=== PATIENT | male | born 1960 | race Caucasian/White ===

== ENCOUNTER 2016-11-11 19:29 | Inpatient (IN) | payer OTHER ==
--- NOTE | ~2016-11-11 | PRECARD ---
H&P [facility] [address] [place]. [address] NAME: IVAN HAMPTON : 64 STATUS : ADM IN [facility]#: [id number] AGE: 56 ADM/REG DATE : 11/11/16 MR#: [id number] REPORT SERV DATE: 11/12/16 DICTATED BY: AMANDA TALBERT DATE: 11/12/16 REPORT STATUS : Draft TRANSCRIBED BY: YANN DATE: 11/12/16 DATE OF ADMISSION: 11/11/2016 Mr. Ivan Hampton is a 56-year-old gentleman, admitted with a diagnosis of congestive heart failure exacerbation and pneumonia, Cardiology is consulted for a troponin of 0.06. Memo reports a history of coronary artery disease. He states he had multiple stents placed, most recently about five years ago by Dr. Underwood at [facility]. He also reports a prior history of congestive heart failure. He reports to the emergency room now with a perhaps one-week history of dyspnea on exertion, easy fatigue, decreased exercise tolerance. He has occasional, rare episodes of orthopnea and PND. He has chest discomfort. The discomfort occurs somewhat randomly, sporadically. He emphatically denies any exertional chest discomfort. The discomfort lasted a few seconds. He is uncertain about the discomfort he had previously. He does not know if this discomfort is similar to the discomfort he has had in the past. He describes some subjective fever. He describes having a green mucus production. He has had no chills. He denies stroke or stroke-like symptoms. He has no palpitations. PAST MEDICAL HISTORY: 1. Prior tobacco use. 2. Hypertension. SOCIAL HISTORY: Prior tobacco use, but quit smoking about 30 years ago. Denies alcohol. Denies illicit drug use. He is homeless. MEDICATIONS: 1. Albuterol. 2. Plavix. 3. Lasix. 4. Lisinopril. 5. Coreg. REVIEW OF SYSTEMS: A complete review of systems obtained, pertinent negative and unremarkable except as noted above and below all systems addressed. PHYSICAL EXAMINATION: Bp: About 120/60. Heart Rate: About 90. GENERAL: Comfortable, in no acute distress. HEENT: No xanthelasma; lips without cyanosis LUNGS: Clear to auscultation, no wheezes, rales or rhonchi; good breath sounds. H&P [facility] [address] [place]. [address] NAME: IVAN HAMPTON : 64 STATUS : ADM IN [facility]#: [id number] AGE: 56 ADM/REG DATE : 11/11/16 MR#: [id number] REPORT SERV DATE: 11/12/16 DICTATED BY: AMANDA TALBERT DATE: 11/12/16 REPORT STATUS : Draft TRANSCRIBED BY: YANN DATE: 11/12/16 COR: No JVD or hepatojugular reflux, no murmurs, rubs or gallops, impulse mid clavicular line without carotid or abdominal bruits; normal S1 and S2. ABDOMEN: Bowel sounds positive, normal activity, without tenderness, masses or hepatosplenomegaly. EXTREMITIES: No edema, cyanosis. SKIN: Normal turgor. Ms: Normal muscle strength, without kyphosis/scoliosis. NEURO/PSYCH: Alert and oriented times 4, no apparent anxiety or depression. LABORATORY DATA: White count 13.3, hematocrit 44.7, and platelet count is 294,000. BUN is 23, creatinine 1.0. Troponin 0.06. BNP 743. EKG is sinus rhythm with inferior infarct, probable anterior infarct. ASSESSMENT: Mr. Hampton is a 56-year-old gentleman with known coronary artery disease admitted with heart failure symptoms. His BNP is elevated at 743. Troponin is 0.06. His CK-MB is 3.6, CPK total 54. His EKG shows prior inferior anterior infarct. We will plan to continue diuresis, assess an echocardiogram to look for left ventricular systolic function, we will add carvedilol empirically for the mortality benefit as well as aspirin. Further recommendations are forthcoming depending upon his clinical course and the result of echocardiogram. RICK/YANN anda Talbert M.D. / [id number] CC: Parag Orozco NP
--- NOTE | ~2016-11-11 | HP ---
History And Physical [place] [id number] [facility] [place]. [address] NAME: JENIFFER RONDON : 64 STATUS : ADM IN [facility]#: [id number] AGE: 56 ADM/REG DATE : 11/11/16 MR#: [id number] REPORT SERV DATE: 11/12/16 DICTATED BY: DELFINA GIRALDO DATE: 11/11/16 REPORT STATUS : Draft TRANSCRIBED BY: MODL DATE: 11/11/16 DATE OF ADMISSION: 11/11/2016 CHIEF COMPLAINT: Increasing shortness of breath, intermittent chest pain, cough, and greenish productive sputum for one week. This is a pleasant 56 years old gentleman. Currently, he does not have a primary care provider nor he has a sports athletic trainer. He says that he has a history of coronary artery disease, status post CO, status post PTCA and stent. According to the patient, four or five years ago, at [place], he got the stent. At that time, he was seeing Dr. Underwood, but he has seen him only during that hospitalization. He has a history of CHF with unknown ejection fraction, hypertension, history of pneumonia, prior tobacco abuse quit about four to five years ago when he had the heart attack, but he was a smoker for 30 years, prior history of pneumonia, currently homeless, living in a tent behind [facility] in [place], presenting today to [facility] with increasing shortness of breath and chest pain, intermittent. It is important to note that lately, the patient has been experiencing increasing shortness of breath and intermittent chest pain especially with exertion and for one week also, some productive cough with greenish sputum production. No fever according to the patient, but mostly, he came complaining of this increasing shortness of breath and chest pain he described as a sharp pain radiating to the left arm that was intermittent, relieved mostly by rest and pain medication. Due to the severity of the symptoms today, he has been brought to emergency room, where after initial evaluation, Hospitalist Service has been asked for admission, further evaluation, and treatment. It is important to note that the patient says that he is taking medications that has been left prescribed by his primary care provider, who used to be Dr. Wan Phillips. No recent hospitalization recently. No recent echo or stress test. PAST MEDICAL HISTORY: Significant for coronary artery disease, status post prior CO, status post prior PTCA and stent; history of hypertension; CHF; prior history of pneumonia; and prior smoker. PAST SURGICAL HISTORY: PTCA and stent about four to five years ago. SOCIAL HISTORY: He is not a smoker, quit about four to five years ago. No alcohol. No IV drugs. ALLERGIES: THE PATIENT DOES NOT HAVE ANY DRUG ALLERGIES. FAMILY HISTORY: Significant for coronary artery disease. MEDICATIONS: Listed as his home medications include albuterol, Plavix, Lasix, Prinivil, and Coreg. REVIEW OF SYSTEMS: A 14-point review of systems has been obtained and pertinent positives have been listed into the history of present illness. Otherwise, negative except those underlying above. PHYSICAL EXAMINATION: History And Physical [address] [address] NAME: JENIFFER RONDON : 64 STATUS : ADM IN [facility]#: [id number] AGE: 56 ADM/REG DATE : 11/11/16 MR#: [id number] REPORT SERV DATE: 11/12/16 DICTATED BY: DELFINA GIRALDO DATE: 11/11/16 REPORT STATUS : Draft TRANSCRIBED BY: YANN DATE: 11/11/16 VITAL SIGNS: Currently, the patient is afebrile, blood pressure 135/72, heart rate 99, respiratory rate 16, and saturating 92% on room air. GENERAL: He is a very pleasant, well-developed, well-nourished gentleman, in no acute distress currently. He is alert and oriented x3. Nonfocal. He follows all his commands appropriately. HEENT: Show pupils equal, round, and reactive to light. Extraocular movements intact. No JVD. No lymphadenopathy. No thyromegaly appreciated. CHEST: Eval shows bilateral air entry. Scant few bilateral bibasilarly crackles. No wheezes, no rhonchi appreciated. CARDIOVASCULAR: Regular rate and rhythm. S1, S2 positive. No S3, no S4. No murmurs, rubs, or gallops appreciated. ABDOMEN: Soft with positive bowel sounds. Nontender. No guarding. No rebound. EXTREMITIES: No clubbing, cyanosis, or edema. NEUROLOGIC: He is alert and oriented x3. Nonfocal. He follows all his commands appropriately. LABORATORY DATA: Labs from today include sodium 143, potassium 3.7, chloride 103, CO2 of 24, BUN 18, creatinine 0.97, glucose is 114. Liver function test shows an ALT of 29, AST 23, total bilirubin 0.7, lipase 290. Troponin I 0.06 and BNP 743.3. Lactate 0.8, white count 14.9, hemoglobin 14.8, hematocrit 46.7, platelets 289. INR 1.2. Blood cultures currently are pending. Chest x-ray shows bilateral pulmonary infiltrates and some congestion. EKG shows normal sinus rhythm with anterolateral ST-T changes. No ST elevation. ASSESSMENT: This is a very pleasant 56 years old gentleman with: 1. Congestive heart failure exacerbation. 2. Unstable angina. 3. Possible pneumonia. 4. History of coronary artery disease, status post prior myocardial infarction, status post PTCA and stent. 5. Hypertension. 6. Prior tobacco abuse. PLAN: 1. The patient is going to be admitted to monitored bed. Place him on oxygen. Place him on nitro paste as tolerated. Coreg. Continue Plavix. Place him on heparin drip as per cardiovascular protocol. Rule him out for myocardial infarction by serial cardiac enzymes, serial EKG. Check a 2D echo. Provide IV diuretics and consult Cardiology for further recommendation. 2. Chest pain, intermittent, with progressive shortness of breath concerning for unstable angina. We are going to place the patient on nitro paste. We are going to place him on heparin drip. Continue Plavix. Rule him out for CO by serial cardiac enzymes, serial EKGs. Check a 2D echo. 3. Possible pneumonia. We are going to place him on antibiotics. Check sputum Gram stain and culture. Nebulizer treatment. Check a procalcitonin level as well. Symptomatic treatment. Follow up chest x-ray in the morning. 4. Hypertension. Continue his home medication. Provide p.r.n. hydralazine as needed. We are going to provide reasonable pain and nausea control as well as GI and DVT History And Physical [address] [address] NAME: JENIFFER RONDON : 64 STATUS : ADM IN [facility]#: [id number] AGE: 56 ADM/REG DATE : 11/11/16 MR#: [id number] REPORT SERV DATE: 11/12/16 DICTATED BY: DELFINA GIRALDO DATE: 11/11/16 REPORT STATUS : Draft TRANSCRIBED BY: MODL DATE: 11/11/16 prophylaxis. That has been discussed extensively with the patient. All the questions have been answered in full. Further workup and recommendation pending above. It is worthwhile to note that the patient is going to be followed up by Dr. Aileen Jasso. CF/MODL Delfina Giraldo M.D. / [id number] CC: Parag Orozco NP
--- NOTE | ~2016-11-11 | DS ---
Discharge Summary [facility] [address] [facility] [place]. [address] NAME: JENIFFER RONDON : 64 STATUS : DIS IN PAT#: [id number] AGE: 56 ADM/REG DATE : 11/11/16 MR#: [id number] REPORT SERV DATE: 11/15/16 DICTATED BY: BIPIN FRAZIER DATE: 11/15/16 REPORT STATUS : Draft TRANSCRIBED BY: MODLuci DATE: 11/15/16 ADMISSION DATE: 11/11/2016 DISCHARGE DATE: 11/15/2016 DIAGNOSES ON ADMISSION: 1. Congestive heart failure exacerbation. 2. Unstable angina. 3. Possible pneumonia. 4. History of coronary artery disease status post prior myocardial infarction, status post PTCA and stent placement. 5. Hypertension. 6. History of prior tobacco abuse. DIAGNOSES ON DISCHARGE: 1. Congestive heart failure exacerbation, present on admission, resolved. Chronic systolic dysfunction with ejection fraction 20% per echocardiogram. 2. Coronary artery disease, status post coronary arteriography per e learning coordinator, Dr. Madera. 3. Occluded mid LAD, occluded mid circumflex, moderate RCA stenosis. Recommendation; medical management and tobacco cessation. 4. Multifocal bronchopneumonia with two nodular opacities, clinically improved. Follow up with color maker as an outpatient. 5. History of tobacco abuse, stop using tobacco. 6. Homelessness. 7. Some degree of medical noncompliance. Lost his primary care physician. Dismissed by Dr. Phillips. No currently primary care physician. 8. Chronic back pain with drug dependency. CONSULTANTS ON THE CASE: Cardiologists, Dr. Talbert and Dr. Sher as well as Dr. Madera, and color maker, Dr. Gertrudis Mccloud. IMAGING STUDIES: 1. Echocardiogram done on 11/12/2016 revealed severely decreased left ventricular systolic function and ejection fraction 20%. Mild left ventricular diastolic dysfunction. Normal right ventricular size and systolic function. Mild left atrial enlargement. Mild aortic mitral and tricuspid regurgitation. 2. Coronary arteriography, which was done on 11/13/2016 showed multivessel coronary artery disease, and medical management was recommended per e learning coordinator, Dr. Madera. 3. Chest x-ray done on 11/12/2016 showed increasing vascular congestion with development of interstitial edema. 4. CT of the chest without contrast done on showed asymmetric left greater than right multifocal bronchopneumonia and most pronounced in the anterior and lateral basilar aspect of the left lower lobe. Two separate areas of subpleural nodular consolidations involving the right apex, largest measuring 2 cm in size. This too is most likely infectious or inflammatory in nature. Three-vessel coronary artery disease, atherosclerosis and stenting. Upper lobe predominant COPD. Discharge Summary [place] [address] [place]. [address] NAME: JENIFFER RONDON : 64 STATUS : DIS IN PAT#: [id number] AGE: 56 ADM/REG DATE : 11/11/16 MR#: [id number] REPORT SERV DATE: 11/15/16 DICTATED BY: BIPIN FRAZIER DATE: 11/15/16 REPORT STATUS : Draft TRANSCRIBED BY: YANN DATE: 11/15/16 HISTORY OF PRESENT ILLNESS: Briefly, this is a 56-year-old male, who was admitted by my colleague, Dr. Delfina Giraldo, for intermittent chest pain, cough, and greenish sputum production. The patient reported that he had a stent several years ago and currently he also had a prior history of pneumonia. He still smokes and currently he is homeless. He lives in a tent behind [facility]. This is per history of present illness dictated by Dr. Delfina Giraldo on 11/11/2016. It is also important to note per Dr. Giraldo's dictation that the patient was still taking medications that has been left prescribed by his primary care physician, Dr. Wan Phillips, although the patient later reported that he was dismissed by Dr. Phillips. For the full H and P, see history of present illness dictated by Dr. Kathie Giraldo on 11/11/2016. HOSPITAL COURSE: Briefly, the patient was admitted to the hospital and was evaluated by Cardiology. He was found to have severe congestive heart failure with a global systolic dysfunction as well as he had coronary arteriogram. See the results above. Factory Focus Technician recommended medical treatment with certain medications which will include aspirin, Plavix, carvedilol, lisinopril, isosorbide, spironolactone, and they also recommended the patient to follow up with e learning coordinator, Dr. Talbert. Regarding his multifocal bronchopneumonia, the patient was seen by color maker, Dr. Gertrudis Mccloud. She recommended the patient to complete a total seven days of antibiotics, so he was switched to Levaquin to complete his seven day of antibiotic course. He was doing well. He did not have any more sputum, and he was afebrile with normal white count. So, Dr. Mccloud recommended the patient to be discharged today and even yesterday he was ready for discharge. For his COPD, she recommended Anoro Ellipta and wrote prescription as well as albuterol. Regarding tobacco abuse, the patient recommended to stop smoking. Regarding pain initially in the beginning of admission, the patient was given pain medications for the chest pain, but currently when his chest pain resolved, he does not require any more pain medications. The patient requested outpatient pain medications for his chronic back pain. The patient was explained that pain medications are dangerous for health specifically for him who just had pneumonia, there is a possibility of aspiration and pain medications can make him unconscious especially narcotic pain medications. So it was explained to the patient that he needs to use Tylenol for his back pain, and he needs to follow up with the primary care physician for further evaluation. He said that Dr. Wan Phillips dismissed him, although he still has medications prescribed by Dr. Phillips, and the patient did not specify the reason why he was dismissed by Dr. Phillips. The patient during hospitalization was constantly asking for narcotic pain medications. So once again, it was explained to the patient that narcotic pain medications can cause a lot of harm to health. In the same time, he was able to ambulate without any problems. So, the patient was recommended to find a primary care physician, and if he really needs pain medications, he needs to be referred to pain management. This was explained to the patient, but the impression here was that the patient is able to function without pain medications. Discharge Summary [place] [id number] [facility] [place]. [address] NAME: JENIFFER RONDON : 64 STATUS : DIS IN [facility]#: [id number] AGE: 56 ADM/REG DATE : 11/11/16 MR#: [id number] REPORT SERV DATE: 11/15/16 DICTATED BY: BIPIN FRAZIER DATE: 11/15/16 REPORT STATUS : Draft TRANSCRIBED BY: YANN DATE: 11/15/16 Homelessness. The patient lives in a tent behind of the [facility]. recruitment advertising manager spoke with the patient and he said that he is going to stay with a friend or in the hospital. This was discussed with the patient with the director of casework services, so director of casework services provided the patient a voucher for transportation as well as director of casework services recommended the patient to be discharged. We also scheduled a followup appointment with e learning coordinator, Dr. Talbert, for 12/14/[address] Gertrudis Mccloud is going to notify the patient regarding followup appointments with her. DISCHARGE MEDICATIONS: The patient was given prescription for aspirin 81 mg daily, Lipitor 40 mg daily, carvedilol 25 mg twice a day prescribed by e learning coordinator, Plavix 75 mg p.o. daily recommended by e learning coordinator, isosorbide mononitrate 60 mg daily, lisinopril 10 mg daily, spironolactone 25 mg daily, Lasix was recommended to decrease to 20 mg daily, Anoro Ellipta prescription once daily given by Dr. Gertrudis Mccloud, as well as albuterol inhaler two puffs inhaled q.24 hours, and prescription for Levaquin 750 mg daily for four days given to the patient to complete a total course of seven days of Levaquin. The patient was discharged in stable condition. I spent 45 minutes on discharge. MG/MODL Bipin Frazier M.D. / [id number] CC: Parag Orozco, Parag Ko M.D.
--- NOTE | ~2016-11-11 | CN ---
Consultation Report [facility] [address] [place]. [address] NAME: JENIFFER HAMPTON : 64 STATUS : ADM IN [facility]#: [id number] AGE: 56 ADM/REG DATE : 11/11/16 MR#: [id number] REPORT SERV DATE: 11/14/16 DICTATED BY: GERTRUDIS CRAWFORD DATE: 11/14/16 REPORT STATUS : Draft TRANSCRIBED BY: MODL DATE: 11/14/16 PULMONARY CONSULTATION DATE OF CONSULTATION: 11/14/2016 REASON FOR CONSULTATION: Abnormal CT scan of the chest and possible COPD. HISTORY OF PRESENT ILLNESS: Mr. Hampton is a 56-year-old white male, former smoker, with a history of congestive heart failure and coronary artery disease. He was admitted complaining of increasing shortness of breath as well as chest pain and cough productive of green sputum for the past several days. Pulmonary was consulted secondary to an abnormal chest CT scan that was done as part of his admission workup. He states he feels significantly better after cardiac catheterization yesterday and medication adjustment for his underlying congestive heart failure and coronary artery disease. Additionally, he has been on azithromycin and Rocephin as well as supplemental oxygen since admission. As an outpatient, he has had ongoing dyspnea on exertion, cough productive of clear sputum and occasional wheezing for more than one year. He does not have an outpatient umbrella tipper, but has a prescription for rescue albuterol. He states he uses his albuterol rescue inhaler two times daily with improvement in the symptoms as described. He does have a history of childhood asthma, but states he "outgrew it a long time ago." He denies previous spirometry or pulmonary function testing. He denies any history of nasal symptoms, GERD symptoms, or symptoms of obstructive sleep apnea. PAST MEDICAL HISTORY: 1. Childhood asthma. 2. Former smoker. 3. Coronary artery disease with previous WI and stent placement. 4. Hypertension. 5. Congestive heart failure. 6. Hyperlipidemia. FAMILY HISTORY: Son had childhood asthma, but is currently asymptomatic and off medications. He denies other family history of pulmonary diseases. SOCIAL HISTORY: Mr. Andres smoked two packs of cigarettes per day for 30 years and quit approximately eight years ago. He has a remote history of smoking "a little marijuana." He denies other past/present drug use, ethanol intake, or chewing tobacco. He currently is unemployed and homeless. He is and has one son. MEDICATIONS: Outpatient and inpatient medications were reviewed and are as documented in the record. As an outpatient, he had an albuterol rescue inhaler, but otherwise, had no Consultation Report [facility] [address] [place]. [address] NAME: JENIFFER HAMPTON : 64 STATUS : ADM IN [facility]#: [id number] AGE: 56 ADM/REG DATE : 11/11/16 MR#: [id number] REPORT SERV DATE: 11/14/16 DICTATED BY: GERTRUDIS CRAWFORD DATE: 11/14/16 REPORT STATUS : Draft TRANSCRIBED BY: YANN DATE: 11/14/16 pulmonary medications currently or in the past. ALLERGIES: HE DENIES MEDICATION ALLERGIES. REVIEW OF SYSTEMS: A 14-point system review was conducted and is remarkable for the symptoms as described in the history of present illness. PHYSICAL EXAMINATION: VITAL SIGNS: Temperature 97.2 degrees, heart rate 72, blood pressure 105/55, respiratory rate 18, and oxygen saturation 96% on supplemental oxygen at a flow rate of 2 liters/minute. GENERAL: Pleasant obese white male. Alert, oriented, in no apparent distress. HEENT: Normocephalic. Atraumatic. There is no scleral icterus. The conjunctivae are clear. The oropharynx is clear. NECK: Supple. No lymphadenopathy was noted. LUNGS: There are diminished breath sounds throughout. There are no crackles, wheezes, or rhonchi. HEART: Regular rate and rhythm. No ectopy was noted. ABDOMEN: Soft. Nontender. Mildly distended with gas. There are normal bowel sounds in all four quadrants. BILATERAL EXTREMITIES: There is trace pedal edema. There is no cyanosis or clubbing. NEUROLOGICAL: A limited exam was found to be nonfocal. SKIN: No rashes were noted. LABORATORY RESULTS: Labs were reviewed and are as documented in the record. Notable labs include a white blood cell count of 9.4. The BNP is 638.7. The procalcitonin on admission was less than 0.05. IMAGING: The chest x-ray done this admission revealed cardiomegaly and pulmonary edema. The CT scan of the chest without contrast done this admission revealed diffuse tree-in-bud opacities and throughout the lungs. There are right upper lobe and left lower lobe infiltrates with air bronchograms. There is upper lobe predominant emphysema. There is a right upper lobe nodular consolidation and cardiomegaly. ASSESSMENT AND PLAN: Mr. Hampton is a 56-year-old white male, former smoker, with an abnormal CT scan of the chest as described above. The findings are consistent with pneumonia and inflammation. He also has emphysema, chronic bronchitis, and possible chronic obstructive pulmonary disease. As described, he has responded to rescue albuterol. 1. Recommend antibiotics for seven days total - he has been on azithromycin. Would complete five days of azithromycin and treat with Rocephin while an inpatient. He can be changed to Levaquin or Augmentin upon discharge for seven days total of antibiotics. 2. He will need a repeat CT scan of the chest to ensure clearing of the abnormal findings described above. This will be arranged for him outpatient in the next six to eight weeks. He will ultimately need at minimum annual lung cancer screening CT scans of the Consultation Report [address] [id number] NAME: JENIFFER HAMPTON : 64 STATUS : ADM IN [facility]#: [id number] AGE: 56 ADM/REG DATE : 11/11/16 MR#: [id number] REPORT SERV DATE: 11/14/16 DICTATED BY: GERTRUDIS CRAWFORD DATE: 11/14/16 REPORT STATUS : Draft TRANSCRIBED BY: YANN DATE: 11/14/16 chest once his current findings have resolved. 3. His symptoms and physical findings are consistent with chronic bronchitis and emphysema plus possible chronic obstructive pulmonary disease. He will be scheduled for outpatient spirometry to confirm. 4. Start Anoro Ellipta while here in the hospital. He is to continue this medication upon discharge. The clinical case manager has been asked to provide him with so that he may obtain the medication without problems. 5. Continue rescue albuterol. 6. He will be scheduled for followup in the Pulmonary Clinic in three to four weeks with a spirogram. Thank you very much for this consultation. Please call again with any further questions. MARCUS/YANN Gertrudis Crawford M.D. / [id number] CC: Parag Orozco NP
[~2016-11-11 19:29] MED LIST: COREG25 PO; L20 PO; PLAVIX PO; PRIN10 PO; PROAIR HFA INH
[2016-11-11 19:34] LABS: BASOPHILS 0.2 %; BASOPHILS ABSOLUTE 0.03 10/3/uL (0.0-0.16); EOSINOPHILS 0.5 %; EOSINOPHILS ABSOLUTE 0.08 10/3/uL (0.0-0.53); HEMATOCRIT 46.7 % (40.0-51.0); HEMOGLOBIN 14.8 g/dL (13.6-17.8); IMMATURE GRANULOCYTES 1.5 %; IMMATURE GRANULOCYTES ABSOLUTE 0.23 10/3/uL (0.0-0.11); LYMPHOCYTES 9.5 %; LYMPHOCYTES ABSOLUTE 1.42 10/3/uL (0.67-4.30); MEAN CORPUS HGB CONC 31.7 g/dL (32.0-36.0); MEAN PLATELET VOLUME 8.9 fL (9.2-13.0); MONOCYTES 3.8 %; MONOCYTES ABSOLUTE 0.57 10/3/uL (0.21-1.20); NEUTROPHILS 84.5 %; NEUTROPHILS ABSOLUTE 12.56 10/3/uL (2.02-8.40); RED CELL COUNT 5.41 10/6/uL (4.7-6.1)
[2016-11-11 19:38] LABS: ER CBC TAT 0 Hrs 14 Mins; MANUAL DIFF NO %; MEAN CORPUSCULAR HEMOGLOB 27.4 pg (26.0-34.0); MEAN CORPUSCULAR VOLUME 86.3 fL (80-100); PLATELET COUNT 289 10/3/uL (150-400); RBC DISTRIBUTION WIDTH 16.6 % (12.0-16.0); WHITE BLOOD CELLS 14.9 10/3/uL (4.5-10.5)
[2016-11-11 19:41] LABS: INTERNATIONAL NORMAL RATI 1.2 UNITS (-); PARTIAL THROMBO TIME 25.5 SEC (22.5-37.2); PROTIME (NOT ORD) 14.6 SEC (12.0-14.5)
[2016-11-11 20:03] LABS: CHLORIDE, SERUM 103 MMOL/L (96-112); CREATININE 0.97 MG/DL (0.70-1.30); GFR AFRICAN AMERICAN 102 ML/MIN (>=60); GFR NON AFRICAN AMERICAN 88 ML/MIN (>=60); GLUCOSE, SERUM 114 MG/DL (60-99); POTASSIUM, SERUM 3.7 MMOL/L (3.5-5.3); SODIUM, SERUM 143 MMOL/L (135-148)
[2016-11-11 20:06] LABS: BUN (BLOOD UREA NITROGEN) 18 MG/DL (6-23); CO2 (CARBON DIOXIDE) 34 MMOL/L (24-34)
[2016-11-11 20:08] LABS: CHEST PAIN PROFILE TAT 0 Hrs 44 Mins; TROPONIN I 0.06 NG/ML (<0.05)
[2016-11-11 21:08] LABS: DIRECT BILIRUBIN 0.1 MG/DL (0.0-0.4); INDIRECT BILIRUBIN(NOT ORDER) 0.6 MG/DL (0.1-0.9); TOTAL BILIRUBIN 0.7 MG/DL (0-1.2); TOTAL PROTEIN 6.8 G/DL (6.0-8.5)
[2016-11-11 21:10] LABS: ALBUMIN 2.6 G/DL (3.5-5.0)
[2016-11-11 21:23] LABS: LACTATE 0.8 MMOL/L (0.3-2.4)
[2016-11-12 05:10] LABS: BASOPHILS 0.3 %; BASOPHILS ABSOLUTE 0.04 10/3/uL (0.0-0.16); EOSINOPHILS 1.7 %; EOSINOPHILS ABSOLUTE 0.23 10/3/uL (0.0-0.53); HEMATOCRIT 44.7 % (40.0-51.0); IMMATURE GRANULOCYTES 1.5 %; LYMPHOCYTES 17.8 %; LYMPHOCYTES ABSOLUTE 2.37 10/3/uL (0.67-4.30); MEAN CORPUS HGB CONC 31.3 g/dL (32.0-36.0); MEAN CORPUSCULAR HEMOGLOB 27.5 pg (26.0-34.0); MEAN CORPUSCULAR VOLUME 87.6 fL (80-100); MEAN PLATELET VOLUME 9.5 fL (9.2-13.0); MONOCYTES 5.1 %; MONOCYTES ABSOLUTE 0.68 10/3/uL (0.21-1.20); NEUTROPHILS 73.6 %; NEUTROPHILS ABSOLUTE 9.79 10/3/uL (2.02-8.40); PLATELET COUNT 294 10/3/uL (150-400); RBC DISTRIBUTION WIDTH 16.8 % (12.0-16.0); WHITE BLOOD CELLS 13.3 10/3/uL (4.5-10.5)
[2016-11-12 05:11] LABS: MANUAL DIFF NO %
[2016-11-12 05:17] LABS: INTERNATIONAL NORMAL RATI 1.1 UNITS (-)
[2016-11-12 05:38] LABS: ALBUMIN 2.5 G/DL (3.5-5.0); ALKALINE PHOSPHATASE 104 U/L (45-117); CALCIUM, SERUM 8.7 MG/DL (8.5-10.4); CHLORIDE, SERUM 104 MMOL/L (96-112); CO2 (CARBON DIOXIDE) 33 MMOL/L (24-34); CPK 54 U/L (0-200); CREATININE 1.04 MG/DL (0.70-1.30); FREE T4 0.99 NG/DL (0.76-1.46); GFR AFRICAN AMERICAN 94 ML/MIN (>=60); GFR NON AFRICAN AMERICAN 81 ML/MIN (>=60); GLUCOSE, SERUM 101 MG/DL (60-99); POTASSIUM, SERUM 4.3 MMOL/L (3.5-5.3); SALICYLATE 2.1 MG/DL (-); SGOT(AST) 23 U/L (5-40); SGPT(ALT) 26 U/L (5-65); SODIUM, SERUM 144 MMOL/L (135-148); TOTAL BILIRUBIN 0.4 MG/DL (0-1.2); TOTAL PROTEIN 6.7 G/DL (6.0-8.5)
[2016-11-12 05:45] LABS: A/G RATIO 0.6 (0.7-1.9); BUN (BLOOD UREA NITROGEN) 23 MG/DL (6-23); CK-MB 3.6 NG/ML; GLOBULIN 4.2 G/DL (2.5-4.1)
[2016-11-12 05:46] LABS: ACETAMINOPHEN LEVEL (TYLENOL) < 2.0 MCG/ML (10.0-20.0); ALCOHOL < 10 MG/DL (0); TROPONIN I 0.06 NG/ML (<0.05)
[2016-11-12 05:53] LABS: B NATRIURETIC PEPTIDE (BNP) 638.7 PG/ML (< 100.0)
[2016-11-12 06:21] LABS: PROCALCITONIN <0.05 ng/mL (<0.5)
[2016-11-12 07:13] LABS: ASCORBIC ACID (UR NOT ORDER) NEG (NEG); BILIRUBIN, URINE NEGATIVE (NEG); KETONE, URINE NEGATIVE (NEG); LEUKOCYTE ESTERASE(NOT OR NEG (NEG); WBC (NOT ORDERED) (RFLEX) 1 (0-5)
[2016-11-12 07:21] LABS: GLYCOHEMOGLOBIN (HbA1c) 5.5 % (4.7-6.1)
[2016-11-13 06:25] LABS: BASOPHILS 0.4 %; BASOPHILS ABSOLUTE 0.04 10/3/uL (0.0-0.16); EOSINOPHILS 2.7 %; EOSINOPHILS ABSOLUTE 0.24 10/3/uL (0.0-0.53); HEMATOCRIT 44.5 % (40.0-51.0); HEMOGLOBIN 13.8 g/dL (13.6-17.8); IMMATURE GRANULOCYTES 1.7 %; IMMATURE GRANULOCYTES ABSOLUTE 0.15 10/3/uL (0.0-0.11); LYMPHOCYTES 26.4 %; LYMPHOCYTES ABSOLUTE 2.35 10/3/uL (0.67-4.30); MEAN CORPUSCULAR HEMOGLOB 27.3 pg (26.0-34.0); MEAN CORPUSCULAR VOLUME 88.1 fL (80-100); MEAN PLATELET VOLUME 9.4 fL (9.2-13.0); MONOCYTES 7.5 %; MONOCYTES ABSOLUTE 0.67 10/3/uL (0.21-1.20); NEUTROPHILS 61.3 %; NEUTROPHILS ABSOLUTE 5.45 10/3/uL (2.02-8.40); PLATELET COUNT 284 10/3/uL (150-400); RBC DISTRIBUTION WIDTH 16.9 % (12.0-16.0); RED CELL COUNT 5.05 10/6/uL (4.7-6.1); WHITE BLOOD CELLS 8.9 10/3/uL (4.5-10.5)
[2016-11-13 06:29] LABS: MANUAL DIFF NO %
[2016-11-13 06:47] LABS: BUN (BLOOD UREA NITROGEN) 24 MG/DL (6-23); CALCIUM, SERUM 8.6 MG/DL (8.5-10.4); CHLORIDE, SERUM 98 MMOL/L (96-112); CO2 (CARBON DIOXIDE) 34 MMOL/L (24-34); CREATININE 1.06 MG/DL (0.70-1.30); GFR AFRICAN AMERICAN 92 ML/MIN (>=60); GFR NON AFRICAN AMERICAN 79 ML/MIN (>=60); GLUCOSE, SERUM 85 MG/DL (60-99); POTASSIUM, SERUM 4.2 MMOL/L (3.5-5.3); SODIUM, SERUM 141 MMOL/L (135-148)
[2016-11-14 06:16] LABS: BASOPHILS 0.2 %; BASOPHILS ABSOLUTE 0.02 10/3/uL (0.0-0.16); EOSINOPHILS 1.7 %; EOSINOPHILS ABSOLUTE 0.16 10/3/uL (0.0-0.53); HEMATOCRIT 44.2 % (40.0-51.0); HEMOGLOBIN 13.8 g/dL (13.6-17.8); IMMATURE GRANULOCYTES 1.7 %; IMMATURE GRANULOCYTES ABSOLUTE 0.16 10/3/uL (0.0-0.11); LYMPHOCYTES 22.3 %; MEAN CORPUS HGB CONC 31.2 g/dL (32.0-36.0); MEAN CORPUSCULAR HEMOGLOB 27.4 pg (26.0-34.0); MEAN CORPUSCULAR VOLUME 87.7 fL (80-100); MEAN PLATELET VOLUME 9.6 fL (9.2-13.0); MONOCYTES ABSOLUTE 0.66 10/3/uL (0.21-1.20); NEUTROPHILS 67.1 %; NEUTROPHILS ABSOLUTE 6.33 10/3/uL (2.02-8.40); PLATELET COUNT 280 10/3/uL (150-400); RED CELL COUNT 5.04 10/6/uL (4.7-6.1); WHITE BLOOD CELLS 9.4 10/3/uL (4.5-10.5)
[2016-11-14 06:21] LABS: MANUAL DIFF NO %
[2016-11-14 06:28] LABS: BUN (BLOOD UREA NITROGEN) 21 MG/DL (6-23); CALCIUM, SERUM 8.2 MG/DL (8.5-10.4); CHLORIDE, SERUM 101 MMOL/L (96-112); CO2 (CARBON DIOXIDE) 36 MMOL/L (24-34); CREATININE 1.23 MG/DL (0.70-1.30); GFR AFRICAN AMERICAN 77 ML/MIN (>=60); GFR NON AFRICAN AMERICAN 66 ML/MIN (>=60); GLUCOSE, SERUM 81 MG/DL (60-99); POTASSIUM, SERUM 5.1 MMOL/L (3.5-5.3); SODIUM, SERUM 140 MMOL/L (135-148)
[2016-11-15 05:15] LABS: BASOPHILS 0.5 %; BASOPHILS ABSOLUTE 0.04 10/3/uL (0.0-0.16); EOSINOPHILS 2.4 %; EOSINOPHILS ABSOLUTE 0.19 10/3/uL (0.0-0.53); HEMATOCRIT 43.2 % (40.0-51.0); HEMOGLOBIN 13.5 g/dL (13.6-17.8); IMMATURE GRANULOCYTES 1.5 %; IMMATURE GRANULOCYTES ABSOLUTE 0.12 10/3/uL (0.0-0.11); LYMPHOCYTES 26.5 %; LYMPHOCYTES ABSOLUTE 2.13 10/3/uL (0.67-4.30); MEAN CORPUS HGB CONC 31.3 g/dL (32.0-36.0); MEAN CORPUSCULAR HEMOGLOB 27.4 pg (26.0-34.0); MEAN CORPUSCULAR VOLUME 87.8 fL (80-100); MEAN PLATELET VOLUME 9.7 fL (9.2-13.0); MONOCYTES 4.1 %; MONOCYTES ABSOLUTE 0.33 10/3/uL (0.21-1.20); NEUTROPHILS ABSOLUTE 5.24 10/3/uL (2.02-8.40); PLATELET COUNT 279 10/3/uL (150-400); RBC DISTRIBUTION WIDTH 16.6 % (12.0-16.0); RED CELL COUNT 4.92 10/6/uL (4.7-6.1); WHITE BLOOD CELLS 8.1 10/3/uL (4.5-10.5)
[2016-11-15 05:16] LABS: MANUAL DIFF NO %
[2016-11-15 05:31] LABS: BUN (BLOOD UREA NITROGEN) 22 MG/DL (6-23); CALCIUM, SERUM 8.7 MG/DL (8.5-10.4); CHLORIDE, SERUM 104 MMOL/L (96-112); CO2 (CARBON DIOXIDE) 33 MMOL/L (24-34); CREATININE 1.12 MG/DL (0.70-1.30); GFR AFRICAN AMERICAN 86 ML/MIN (>=60); GFR NON AFRICAN AMERICAN 74 ML/MIN (>=60); SODIUM, SERUM 143 MMOL/L (135-148)
[2016-11-15 05:34] LABS: GLUCOSE, SERUM 121 MG/DL (60-99)
[2016-11-15] MEDS ORDERED: HALF81 PO (08:45)
[2016-11-15] MEDS ORDERED: LIPITOR40 PO (08:45)
[2016-11-15] MEDS ORDERED: MUCINEX600 MG PO (08:49)
[2016-11-15] MEDS ORDERED: IMDUR60 PO (08:49)
[2016-11-15] MEDS ORDERED: ANOROELLIPTA INH (08:50)
[2016-11-15] MEDS ORDERED: SPIRO25 PO (08:50)
[2016-11-15] MEDS ORDERED: PROAIR HFA INH (08:51)
[2016-11-15] MEDS ORDERED: FLORASTOR250 MG PO (08:51)
[2016-11-15] MEDS ORDERED: LEVAQUIN750 MG PO (08:57)
== END 2016-11-15 11:56 | disposition home or self-care (01) | DRG 286 ==
LOC: ER 19:29 → 5NO 22:07
PROVIDERS: Emergency Medicine; Hospitalist; Internal Medicine Cardiovascular Disease
PROC: 4A023N7 Measurement of Cardiac Sampling and Pressure, Left Heart, Percutaneous Approach (ICD-10-PCS; principal; 2016-11-13)
PROC: B2111ZZ Fluoroscopy of Multiple Coronary Arteries using Low Osmolar Contrast (ICD-10-PCS; 2016-11-13)
PROC: B2151ZZ Fluoroscopy of Left Heart using Low Osmolar Contrast (ICD-10-PCS; 2016-11-13)
DX: I25.10 Atherosclerotic heart disease of native coronary artery without angina pectoris (principal); I50.23 Acute on chronic systolic (congestive) heart failure; J18.9 Pneumonia, unspecified organism; I11.0 Hypertensive heart disease with heart failure; I24.8 Other forms of acute ischemic heart disease; Z95.5 Presence of coronary angioplasty implant and graft; Z87.891 Personal history of nicotine dependence; Z79.02 Long term (current) use of antithrombotics/antiplatelets; I25.2 Old myocardial infarction; Z59.0 Homelessness
CPT/HCPCS: 71010; 71250; 80048; 80053; 80076; 80307; 81001; 82550; 82553; 83036; 83605; 83615; 83690; 83735; 83880; 84100; 84145; 84439; 84443; 84484; 85025; 85610; 85730; 87040; 87449; 93005; 93458; 94640; 96374; 99152; 99285; A9270-GY; C1769; C1887; C1894; C8929; J0456; J2250; J2405; J3010; Q9957; Q9967